=== PATIENT | female | born 2000 | race American Indian/Alaskan Native ===

== ENCOUNTER 2022-06-06 17:57 | Outpatient (CLI) | payer MEDICAID ==
[2022-06-06] MEDS ORDERED: LACTATED RINGERS 500 ML IV ONE (18:23)
[2022-06-06] MEDS ORDERED: ONDANSETRON 4 MG/2 ML INJ IV ONE (18:41)
[2022-06-06 20:40] LABS: Bacteria,Urine 2+ /HPF (Negative); Hyaline Casts,Urine 2 /LPF; Mucus,Urine 3+ /HPF
[2022-06-06 20:54] LABS: Color,Urine Yellow (Yellow)
[2022-06-06 20:55] LABS: Bilirubin,Urine 1+ (Negative); Blood,Urine Negative (Negative); Ictotest,Urine Negative (Negative)
--- NOTE | 2022-06-06 21:53 | Ultrasound Report ---
Limited OB ultrasound Biophysical profile INDICATION: well-being FINDINGS: Single live intrauterine in cephalic position. LESLYE measures 11.8 cm. heart rate 1 47 bpm. 31 weeks 1 day. Biophysical profile measures 8 out of 8. IMPRESSION: Normal biophysical profile. Single live intrauterine . Signer Name: Adam Quinonez MD Signed: 06/06/2022 9:49 PM Workstation Name: [id number]
--- NOTE | 2022-06-06 21:53 | Ultrasound Report ---
Limited OB ultrasound Biophysical profile INDICATION: well-being FINDINGS: Single live intrauterine in cephalic position. LESLYE measures 11.8 cm. heart rate 1 47 bpm. 31 weeks 1 day. Biophysical profile measures 8 out of 8. IMPRESSION: Normal biophysical profile. Single live intrauterine . Signer Name: Adam Quinonez MD Signed: 06/06/2022 9:49 PM Workstation Name: [id number]
[2022-06-06 22:17] LABS: Alanine Aminotransferase 12 units/L (7-56); Albumin 3.6 g/dL (3.9-5); Basophils % (Auto) 0.2 % (0.0-1.8); Blood Urea Nitrogen 10 mg/dL (7-17); Calcium 9.1 mg/dL (8.4-10.2); Hematocrit 35.8 % (30.3-42.9); Hemoglobin 11.4 gm/dl (10.1-14.3); Hemolysis Index 10; Lymphocytes # (Auto) 1.2 K/mm3 (1.2-5.4); Lymphocytes % (Auto) 10.5 % (13.4-35.0); Mean Corpuscular HGB Conc 32 % (30-34); Mean Corpuscular Volume 87 fl (79-97); Monocytes # (Auto) 0.7 K/mm3 (0.0-0.8); Monocytes % (Auto) 5.7 % (0.0-7.3); Platelet Count 214 K/mm3 (140-440); Red Blood Count 4.11 M/mm3 (3.65-5.03); Red Cell Distribution Width 13.4 % (13.2-15.2)
[2022-06-06 22:25] LABS: BUN/Creatinine Ratio 17
[2022-06-06] MEDS ORDERED: FAMOTIDINE 20 MG/2 ML INJ IV ONE (22:30)
[2022-06-06 23:00] VITALS: BP 124/83
== END 2022-06-06 23:25 | disposition home or self-care (01) ==
LOC: TRG 17:57 → APU 17:59 → TRG 23:07
PROVIDERS: ATTEND Obstetrics & Gynecology
DX: O21.2 Late vomiting of pregnancy (principal); R19.7 Diarrhea, unspecified; O26.893 Other specified pregnancy related conditions, third trimester; R10.9 Unspecified abdominal pain; Z3A.31 31 weeks gestation of pregnancy
CPT/HCPCS: 36415; 76815; 76819; 80053; 81001; 85025; 87086; 96365; 96367; J2405; J3490; J7120